=== PATIENT | male | born 1960 | race Caucasian/White ===

== ENCOUNTER 2016-12-28 13:27 | Inpatient (IN) | payer OTHER ==
[2016-12-28 14:16] VITALS: BMI 23.7
--- NOTE | 2016-12-28 17:30 | HP ---
COWS - Scale Resting Pulse: 0= ME 80 or Below Sweatin= Chills/Flushing Restless Observation: 1= Difficult to Sit Still Pupil Size: 0= Normal to Room Light Bone or Joint Aches: 1= Mild Discomfort Runny Nose/ Eye Tearin= Nasal Congestion GI Upset > 30mins: 2= Nausea/Diarrhea Tremor Observation: 2= Slight Tremor Visible Yawning Observation: 1= 1-2x During Session Anxiety or Irritability: 2=Irritable/Anxious Goose Flesh Skin: 3=Piloerection COWS Score: 14 CIWA Score - CIWA Score Nausea/Vomitin Muscle Tremors: 4-Moderate,w/Arms Extend Anxiety: 4-Mod. Anxious/Guarded Agitation: 4-Moderately Restless Paroxysmal Sweats: 1-Minimal Palms Moist Orientation: 1-Uncertain about Date Tacttile Disturbances: 0-None Auditory Disturbances: 0-None Visual Disturbances: 0-None Headache: 0-None Present CIWA-Ar Total Score: 16 Admission ROS BHS - HPI Chief Complaint: WITHDRAWAL SX Allergies/Adverse Reactions: Allergies Allergy/AdvReac Type Severity Reaction Status Date / Time Penicillins Allergy Intermediate Rash Verified 12/28/16 15:38 History of Present Illness: 56 YEARS OLD MALE WITH LONG HISTORY OF ALCOHOL OPIATE NICOTINE DEPENDENCE, HAS GERD HYPERLIPIDEMIA, CHRONIC ANGINA X 15 YEARS, HYPERTENSION ASTHMA AND SCHIZOPHRENIA, IS ADMITTED TO DETOX Exam Limitations: No Limitations - Ebola screening Have you traveled outside of the country in the last 21 days: No Have you had contact with anyone from an Ebola affected area: No Have you been sick,other than usual withdrawal symptoms: No Do you have a fever: No - Review of Systems Constitutional: Chills, Changes in sleep, Weight Stable EENT: reports: No Symptoms Reported Respiratory: reports: Cough Cardiac: reports: Chest Pain (CHRONIC ANGINA X 15 YEARS) GI: reports: Nausea, Poor Appetite, Poor Fluid Intake, Indigestion, Abdominal cramping : reports: No Symptoms Reported Musculoskeletal: reports: Back Pain, Joint Pain, Muscle Pain, Neck Pain Integumentary: reports: No Symptoms Reported Neuro: reports: Seizure (LAST EPISODE 10/2016), Tremors Endocrine: reports: No Symptoms Reported Hematology: reports: Easy Bruising Psychiatric: reports: Judgement Intact Other Systems: Reviewed and Negative Patient History - Patient Medical History Hx Anemia: No Hx Asthma: Yes Hx Chronic Obstructive Pulmonary Disease (COPD): No Hx Cancer: No Hx Cardiac Disorders: Yes (CAD) Hx Congestive Heart Failure: No Hx Hypertension: Yes Hx Hypercholesterolemia: Yes Hx Pacemaker: No HX Cerebrovascular Accident: Yes (5 YRS. AGO,LEFT SIDED WEAKNESS,RESOLVED) Hx Seizures: Yes (10/2016) Hx Dementia: No Hx Diabetes: Yes Hx Gastrointestinal Disorders: Yes Hx Liver Disease: No Hx Genitourinary Disorders: No Hx Sexually Transmitted Disorders: No Hx Renal Disease (ESRD): No Hx Thyroid Disease: No Hx Human Immunodeficiency Virus (HIV): No Hx Hepatitis C: No Hx Depression: No Hx Suicide Attempt: Yes (02/2016 KILLED BY PROXY) Hx Bipolar Disorder: No Hx Schizophrenia: Yes - Patient Surgical History Past Surgical History: No Hx Neurologic Surgery: No Hx Cataract Extraction: No Hx Cardiac Surgery: No Hx Lung Surgery: No Hx Breast Surgery: No Hx Breast Biopsy: No Hx Abdominal Surgery: No Hx Appendectomy: No Hx Cholecystectomy: No Hx Genitourinary Surgery: No Hx Orthopedic Surgery: No - PPD History Previous Implant?: Yes Documented Results: Negative w/proof Implanted On Prior R Admission?: Yes Date: 01/07/16 PPD to be Administered?: No - Smoking Cessation Smoking history: Current every day smoker Have you smoked in the past 12 months: Yes Aproximately how many cigarettes per day: 10 Cigars Per Day: 0 Hx Chewing Tobacco Use: No Initiated information on smoking cessation: Yes 'Breaking Loose' booklet given: 12/28/16 - Substance & Tx. History Hx Alcohol Use: Yes Hx Substance Use: Yes Substance Use Type: Alcohol, Heroin, Opiates Hx Substance Use Treatment: Yes - Substances Abused Alcohol Route: Oral Frequency: Daily Amount used: 2 pints vodka, 10 beers Age of first use: 28 Date of Last Use: 12/28/16 Heroin Route: Injection Frequency: Daily Amount used: 15 bags Age of first use: 14 Date of Last Use: 12/28/16 Family Disease History - Family Disease History Family Disease History: Diabetes: Mother (HTN), Brother (CRF,HEMODIALYSIS), Heart Disease: Mother Admission Physical Exam BHS - Vital Signs Vital Signs: Vital Signs - 24 hr 12/28/16 14:13 Temperature 97.5 F L Pulse Rate 78 Respiratory 15 Rate Blood Pressure 141/80 - Physical General Appearance: Yes: Appropriately Dressed, Mild Distress, Alcohol on Breath , Thin, Tremorous, Irritable, Sweating, Anxious HEENTM: Yes: Hearing grossly Normal, Normal ENT Inspection, Normocephalic, Normal Voice Respiratory: Yes: Chest Non-Tender, No Respiratory Distress, No Accessory Muscle Use, Wheezing, Expiration Neck: Yes: Supple, Trachea in good position Breast: Yes: Breasts Symetrical Cardiology: Yes: Regular Rhythm, Regular Rate, S1, S2 Abdominal: Yes: Non Tender, Soft, Increased Bowel Sounds Genitourinary: Yes: Within Normal Limits Back: Yes: Normal Inspection Musculoskeletal: Yes: full range of Motion, Gait Steady (CANE), Back pain, Muscle Pain Extremities: Yes: Normal Range of Motion, Non-Tender, Tremors Neurological: Yes: Alert, Motor Strength 5/5, Normal Response, Depressed Affect Integumentary: Yes: Warm, Moist, Track Bhakta Lymphatic: Yes: Within Normal Limits - Diagnostic (1) Alcohol dependence with uncomplicated withdrawal Current Visit: Yes Status: Acute (2) HTN (hypertension) Current Visit: Yes Status: Acute Qualifiers: Hypertension type: essential hypertension Qualified Code(s): I10 - Essential (primary) hypertension (3) Hypercholesteremia Current Visit: Yes Status: Acute (4) Nicotine dependence Current Visit: Yes Status: Acute Qualifiers: Nicotine product type: cigarettes Substance use status: in withdrawal Qualified Code(s): F17.213 - Nicotine dependence, cigarettes, with withdrawal (5) Opioid dependence with withdrawal Current Visit: Yes Status: Acute (6) Schizophrenia Current Visit: Yes Status: Suspected Qualifiers: Schizophrenia type: disorganized schizophrenia Qualified Code(s): F20.1 - Disorganized schizophrenia (7) Asthma Current Visit: Yes Status: Acute Qualifiers: Asthma severity: mild intermittent Asthma complication type: uncomplicated Qualified Code(s): J45.20 - Mild intermittent asthma, uncomplicated (8) Chronic stable angina Current Visit: Yes Status: Chronic (9) 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
[2016-12-28] MEDS ORDERED: ACETAMINOPHEN 325 MG TABLET (FP) PO PRN (17:35)
[2016-12-28] MEDS ORDERED: MAG HYDROX/AL HYDROX/SIMETH 30 ML UNIT-DOSE CUP PO PRN (17:35)
[2016-12-28] MEDS ORDERED: MAGNESIUM CITRATE 300 ML BOTTLE PO PRN (17:35)
[2016-12-28] MEDS ORDERED: guaiFENesin/D-METHORPHAN HB 10 ML UNIT-DOSE CUPS PO PRN (17:35)
[2016-12-28] MEDS ORDERED: LOPERAMIDE HCL 2 MG CAPSULE PO PRN (17:35)
[2016-12-28] MEDS ORDERED: diphenhydrAMINE HCL 50 MG CAPSULE PO PRN (17:35)
[2016-12-28] MEDS ORDERED: MENTHOL/PHENOL 1 EACH UD MM PRN (17:35)
[2016-12-28] MEDS ORDERED: MAGNESIUM HYDROX 2400MG/30ML ORAL SUSPENSION 30 ML CUP PO PRN (17:35)
[2016-12-28] MEDS ORDERED: P-EPHED 60MG/TRIPROLIDI 2.5MG TABLET PO PRN (17:35)
[2016-12-28] MEDS ORDERED: ALBUTEROL SO4 6.7 GM HFA INHALER IH PRN (17:38)
[2016-12-28] MEDS ORDERED: ALBUTEROL SO4 2.5/IPRATROPIUM 0.5 INH SOL 3 ML VIAL.NEB. NEB PRN (17:38)
[2016-12-28] MEDS ORDERED: cloNIDine HCL 0.1 MG TABLET PO PRN (17:39)
[2016-12-28] MEDS ORDERED: METHADONE HCL 10 MG TABLET (FOR DETOX USE ONLY) PO ONE ×2 (18:00→23:00)
[2016-12-28] MEDS: chlordiazePOXIDE HCL 25 MG CAPSULE PO PRN (18:40)
[2016-12-28] MEDS ORDERED: INSULIN SLIDING SCALE (NOVOLOG) 1 VIAL SQ SCH (22:00)
[2016-12-28] MEDS: THIAMINE HCL 100 MG TABLET (FP) PO SCH (22:16)
[2016-12-28] MEDS: METOPROLOL TARTRATE 25 MG TABLET (FP) PO SCH (22:16)
[2016-12-28] MEDS: chlordiazePOXIDE HCL 25 MG CAPSULE PO SCH (22:16)
[2016-12-28] MEDS: RANITIDINE HCL 150 MG TABLET (FP) PO SCH (22:17)
[2016-12-28] MEDS: ATORVASTATIN CA 40 MG TABLET (FP) PO SCH (22:17)
[2016-12-28 22:51] LABS: URINE APPEARANCE CLEAR; URINE BILIRUBIN NEGATIVE (NEGATIVE); URINE BLOOD NEGATIVE (NEGATIVE); URINE COLOR STRAW; URINE GLUCOSE (UA) NEGATIVE (NEGATIVE); URINE KETONE NEGATIVE (NEGATIVE); URINE LEUK ESTERASE NEGATIVE (NEGATIVE); URINE NITRITE NEGATIVE (NEGATIVE); URINE PROTEIN NEGATIVE (NEGATIVE); URINE UROBILINOGEN NEGATIVE E.U./dl (0.2-1.0)
[2016-12-29] MEDS: chlordiazePOXIDE HCL 25 MG CAPSULE PO SCH ×4 (05:57→22:24)
[2016-12-29] MEDS ORDERED: HALOPERIDOL 5 MG TABLET (FP) PO PRN (09:06)
--- NOTE | 2016-12-29 09:06 | CONSULT ---
[facility] Psychiatric Consult - Data Date of interview: 12/29/16 Admission source: [facility] Identifying data: This is 56 years old male with history of Schizophrenia intoxicated wiuth: Alcohol and Opioids Substance Abuse History: - Smoking Cessation. Smoking history: Current every day smoker. Have you smoked in the past 12 months: Yes. Aproximately how many cigarettes per day: 10. Cigars Per Day: 0. Hx Chewing Tobacco Use: No. Initiated information on smoking cessation: Yes. 'Breaking Loose' booklet given : 12/28/16. - Substance & Tx. History. Hx Alcohol Use: Yes. Hx Substance Use : Yes. Substance Use Type: Alcohol, Heroin, Opiates. Hx Substance Use Treatment: Yes. - Substances Abused. Alcohol. Route: Oral. Frequency: Daily. Amount used: 2 pints vodka, 10 beers. Age of first use: 28. Date of Last Use: 12/28/16. Heroin. Route: Injection. Frequency: Daily. Amount used: 15 bags. Age of first use: 14. Date of Last Use: 12/28/16 Medical History: Asthma, HTN, Hypercholesterolemia Psychiatric History: Patient as per cahrt carries Paranoid Schisophrenia, as per chart taking: Haldol 5mg po bid. Cogentin 1mg po bid. Patient reports unclea history of past psychiatric hospitalizations Physical/Sexual Abuse/Trauma History: Denies Additional Comment: Haldol 5mg po bid. Cogentin 1mg po bid Mental Status Exam - Mental Status Exam Alert and Oriented to: Person Cognitive Function: Fair Patient Appearance: Unkempt Mood: Angry, Anxious Affect: Constricted Patient Behavior: Guarded Speech Pattern: Pressured Voice Loudness: Mildly Loud Thought Process: Circumstantial Thought Disorder: Present, Being Controlled Hallucinations: Denies Suicidal Ideation: Denies Homicidal Ideation: Denies Insight/Judgement: Fair Sleep: Difficulty falling asleep Appetite: Fair Muscle strength/Tone: Mild Hypotonicity Gait/Station: Shuffling Additional Comments: Haldol 5mg po bid. Cogentin 1mg po bid Psychiatric Findings - Problem List ([place] 1, 2,3) (1) Alcohol dependence with uncomplicated withdrawal Current Visit: Yes Status: Acute (2) Nicotine dependence Current Visit: Yes Status: Acute Qualifiers: Nicotine product type: cigarettes Substance use status: in withdrawal Qualified Code(s): F17.213 - Nicotine dependence, cigarettes, with withdrawal (3) Opioid dependence with withdrawal Current Visit: Yes Status: Acute (4) Schizophrenia Current Visit: Yes Status: Suspected Qualifiers: Schizophrenia type: disorganized schizophrenia Qualified Code(s): F20.1 - Disorganized schizophrenia - Initial Treatment Plan Initial Treatment Plan: Haldol 5mg po bid. Cogentin 1mg po bid
[2016-12-29] MEDS ORDERED: METHADONE HCL 10 MG TABLET (FOR DETOX USE ONLY) PO SCH (10:00)
[2016-12-29 10:09] LABS: MCH 29.7 pg (25.7-33.7); MCHC 33.5 g/dl (32.0-35.9); MEAN CELL VOLUME 88.6 fl (80-96); MEAN PLT VOLUME 9.8 fl (7.5-11.1); PLATELET COUNT 211 K/MM3 (134-434); WHITE BLOOD COUNT 6.6 K/mm3 (4.0-10.0)
[2016-12-29] MEDS: BENZTROPINE MESYLATE 1 MG TABLET (FP) PO SCH ×2 (10:13→22:25)
[2016-12-29] MEDS: METOPROLOL TARTRATE 25 MG TABLET (FP) PO SCH ×2 (10:14→22:25)
[2016-12-29] MEDS: NICOTINE 14 MG/24 HOURS TOPICAL PATCH TD SCH (10:14)
[2016-12-29] MEDS: ASPIRIN 81 MG CHEWABLE TABLETS PO SCH (10:14)
[2016-12-29] MEDS: RANITIDINE HCL 150 MG TABLET (FP) PO SCH ×2 (10:14→22:25)
[2016-12-29 10:19] LABS: ALBUMIN 3.9 g/dl (3.4-5.0); ANION GAP 5 (8-16); CO2 34 mmol/L (21-32); CREATININE 0.7 mg/dL (0.7-1.3); GLUCOSE,RANDOM 80 mg/dL (74-106); SGOT/AST 52 U/L (15-37); SGPT/ALT 58 U/L (12-78)
[2016-12-29 10:21] LABS: ALK PHOS 119 U/L (45-117); BILIRUBIN,TOTAL 0.4 mg/dL (0.2-1.0); TOT PROT 7.4 g/dl (6.4-8.2)
--- NOTE | 2016-12-29 10:25 | PN ---
[facility] CIWA - CIWA Score Nausea/Vomitin Muscle Tremors: 4-Moderate,w/Arms Extend Anxiety: 4-Mod. Anxious/Guarded Agitation: 4-Moderately Restless Paroxysmal Sweats: 3 Orientation: 0-Oriented Tacttile Disturbances: 0-None Auditory Disturbances: 0-None Visual Disturbances: 0-None Headache: 0-None Present CIWA-Ar Total Score: 18 S COWS - Scale Resting Pulse: 0= [place] 80 or Below Sweatin=Flushed/Facial Moisture Restless Observation: 1= Difficult to Sit Still Pupil Size: 0= Normal to Room Light Bone or Joint Aches: 2= Severe Diffuse Aches Runny Nose/ Eye Tearin= Runny Nose/Eyes GI Upset > 30mins: 2= Nausea/Diarrhea Tremor Observation of Outstretched Hands: 2= Slight Tremor Visible Yawning Observation: 1= 1-2x During Session Anxiety or Irritability: 2=Irritable/Anxious Goose Flesh Skin: 0=Smooth Skin COWS Score: 14 [facility] Progress Note (SOAP) Subjective: Anxiety,tremors,sweating,nausea,interrupted sleep,restless,body aches Objective: 12/29/16 10:24 Vital Signs - 8 hr 12/29/16 12/29/16 12/29/16 03:30 06:04 09:10 Temperature 95.8 F L 97.2 F L Pulse Rate 77 75 Respiratory 18 18 18 Rate Blood Pressure 136/93 142/83 Laboratory Tests 12/28/16 12/29/16 12/29/16 22:35 06:00 06:00 WBC 6.6 RBC 4.79 Hgb 14.2 Hct 42.5 MCV 88.6 MCHC 33.5 RDW 14.0 Plt Count 211 MPV 9.8 D Sodium 141 Potassium 4.6 Chloride 102 Carbon Dioxide 34 H Anion Gap 5 L BUN 8 D Creatinine 0.7 Creat Clearance w eGFR > 60 Random Glucose 80 Calcium 9.0 Total Bilirubin 0.4 D AST 52 H D ALT 58 D Alkaline Phosphatase 119 H D Total Protein 7.4 Albumin 3.9 Urine Color Straw Urine Appearance Clear Urine pH 5.0 D Ur Specific [place] 1.005 Urine Protein Negative Urine Glucose (UA) Negative Urine Ketones Negative Urine Blood Negative Urine Nitrite Negative Urine Bilirubin Negative Urine Urobilinogen Negative Ur Leukocyte Esterase Negative labs noted Assessment: 12/29/16 10:25 withdrawal sx. Plan: Continue detox
[2016-12-29 11:35] LABS: HIV 1 & 2 AB NEGATIVE; HIV 1 AGp24 NEGATIVE
[2016-12-29] MEDS: chlordiazePOXIDE HCL 25 MG CAPSULE PO PRN (12:26)
--- NOTE | 2016-12-29 14:15 | EKG ---
Test Reason : Blood Pressure : / mmHG Vent. Rate : 086 BPM Atrial Rate : 086 BPM P-R Int : 152 ms QRS Dur : 076 ms QT Int : 350 ms P-R-T Axes : 049 056 029 degrees QTc Int : 418 ms NORMAL SINUS RHYTHM NORMAL ECG NO PREVIOUS ECGS AVAILABLE Confirmed by PAUL NORWOOD MD ([id number]) on 12/29/2016 2:15:30 PM Referred By: Leonidas Echevarria Confirmed By:PAUL NORWOOD MD
[2016-12-29] MEDS: THIAMINE HCL 100 MG TABLET (FP) PO SCH (22:25)
[2016-12-29] MEDS: ATORVASTATIN CA 40 MG TABLET (FP) PO SCH (22:25)
[2016-12-30] MEDS: chlordiazePOXIDE HCL 25 MG CAPSULE PO PRN (01:15)
[2016-12-30] MEDS: chlordiazePOXIDE HCL 25 MG CAPSULE PO SCH ×2 (05:36→10:30)
[2016-12-30 09:36] VITALS: BP 147/81; PULSE 73; TEMP 96.6
[2016-12-30] MEDS ORDERED: METHADONE HCL 5 MG TABLET (FOR DETOX USE ONLY) PO SCH (10:00)
[2016-12-30] MEDS: ASPIRIN 81 MG CHEWABLE TABLETS PO SCH (10:30)
[2016-12-30] MEDS: BENZTROPINE MESYLATE 1 MG TABLET (FP) PO SCH (10:30)
[2016-12-30] MEDS: RANITIDINE HCL 150 MG TABLET (FP) PO SCH (10:30)
[2016-12-30] MEDS: METOPROLOL TARTRATE 25 MG TABLET (FP) PO SCH (10:30)
[2016-12-30] MEDS: NICOTINE 14 MG/24 HOURS TOPICAL PATCH TD SCH (10:30)
--- NOTE | 2016-12-30 12:25 | DS ---
[facility] Detox Discharge Summary Admission Date: 12/28/16 Discharge Date: 12/30/16 - History Present History: Alcohol Dependence, Opioid Dependence Additional Comments: ADVISED PT. TO FOLLOW-UP WITH INCOME [employer]AX EXPERT FOR GENERAL MEDICAL ASSESSMENT. PATIENT CONFRONTATIONAL AND VERBALLY ABUSIVE TO STAFF. Pertinent Past History: Asthma, HTN, CAD, Schizophrenia, Hypercholesterolemia, DM. - Physical Exam Results Vital Signs: Vital Signs Temperature 96.6 F L 12/30/16 09:35 Pulse Rate 73 12/30/16 09:35 Respiratory Rate 18 12/30/16 09:35 Blood Pressure 147/81 12/30/16 09:35 O2 Sat by Pulse Oximetry (%) Pertinent Admission Physical Exam Findings: WITHDRAWAL SYMPTOMS. Laboratory Last Values WBC 6.6 K/mm3 (4.0-10.0) 12/29/16 06:00 RBC 4.79 M/mm3 (4.00-5.60) 12/29/16 06:00 Hgb 14.2 GM/dL (11.7-16.9) 12/29/16 06:00 Hct 42.5 % (35.4-49) 12/29/16 06:00 MCV 88.6 fl (80-96) 12/29/16 06:00 MCHC 33.5 g/dl (32.0-35.9) 12/29/16 06:00 RDW 14.0 % (11.9-15.9) 12/29/16 06:00 Plt Count 211 K/MM3 (134-434) 12/29/16 06:00 MPV 9.8 fl (7.5-11.1) D 12/29/16 06:00 Sodium 141 mmol/L (136-145) 12/29/16 06:00 Potassium 4.6 mmol/L (3.5-5.1) 12/29/16 06:00 Chloride 102 mmol/L (98-107) 12/29/16 06:00 Carbon Dioxide 34 mmol/L (21-32) H 12/29/16 06:00 Anion Gap 5 (8-16) L 12/29/16 06:00 BUN 8 mg/dL (7-18) D 12/29/16 06:00 Creatinine 0.7 mg/dL (0.7-1.3) 12/29/16 06:00 Creat Clearance w eGFR > 60 (>60) 12/29/16 06:00 Random Glucose 80 mg/dL (74-106) 12/29/16 06:00 Calcium 9.0 mg/dL (8.5-10.1) 12/29/16 06:00 Total Bilirubin 0.4 mg/dL (0.2-1.0) D 12/29/16 06:00 AST 52 U/L (15-37) H D 12/29/16 06:00 ALT 58 U/L (12-78) D 12/29/16 06:00 Alkaline Phosphatase 119 U/L (45-117) H D 12/29/16 06:00 Total Protein 7.4 g/dl (6.4-8.2) 12/29/16 06:00 Albumin 3.9 g/dl (3.4-5.0) 12/29/16 06:00 Urine Color Straw 12/28/16 22:35 Urine Appearance Clear 12/28/16 22:35 Urine pH 5.0 (5.0-8.0) D 12/28/16 22:35 Ur Specific [place] 1.005 (1.001-1.035) 12/28/16 22:35 Urine Protein Negative (NEGATIVE) 12/28/16 22:35 Urine Glucose (UA) Negative (NEGATIVE) 12/28/16 22:35 Urine Ketones Negative (NEGATIVE) 12/28/16 22:35 Urine Blood Negative (NEGATIVE) 12/28/16 22:35 Urine Nitrite Negative (NEGATIVE) 12/28/16 22:35 Urine Bilirubin Negative (NEGATIVE) 12/28/16 22:35 Urine Urobilinogen Negative E.U./dl (0.2-1.0) 12/28/16 22:35 Ur Leukocyte Esterase Negative (NEGATIVE) 12/28/16 22:35 RPR Titer Nonreactive (NONREACTIVE) 12/29/16 06:00 Hepatitis C Antibody <0.1 s/co ratio (0.0-0.9) 12/28/16 06:00 HIV 1&2 Antibody Screen Negative 12/28/16 06:00 HIV P24 Antigen Negative 12/28/16 06:00 LABS NOTED. - Treatment Hospital Course: Detoxed Safely - Medication Discharge Medications: Ambulatory Orders Albuterol Sulfate Inhaler - [Ventolin HFA Inhaler -] 2 inh PO Q4H PRN 10/08/14 Atorvastatin Ca [Lipitor -] 40 mg PO HS 08/06/14 Metoprolol Succinate [Toprol XL -] 25 mg PO BID 08/06/14 Aspirin [ASA -] 81 mg PO DAILY 01/05/16 Esomeprazole Mag Trihydrate [Nexium] 40 mg PO DAILY 01/05/16 Benztropine Mesylate [Cogentin -] 1 mg PO BID #60 tablet 01/06/16 Benztropine Mesylate [Cogentin -] 1 mg PO BID #60 tablet 12/29/16 - Diagnosis (1) Alcohol dependence with uncomplicated withdrawal Status: Acute (2) Asthma Status: Chronic Qualifiers: Asthma severity: mild intermittent Asthma complication type: uncomplicated Qualified Code(s): J45.20 - Mild intermittent asthma, uncomplicated (3) HTN (hypertension) Status: Chronic Qualifiers: Hypertension type: essential hypertension Qualified Code(s): I10 - Essential (primary) hypertension (4) Hypercholesteremia Status: Chronic (5) Nicotine dependence Status: Chronic Qualifiers: Nicotine product type: cigarettes Substance use status: in withdrawal Qualified Code(s): F17.213 - Nicotine dependence, cigarettes, with withdrawal (6) Opioid dependence with withdrawal Status: Acute (7) Chronic stable angina Status: Chronic (8) S/P stroke due to cerebrovascular disease Status: Chronic (9) Schizophrenia Status: Suspected Qualifiers: Schizophrenia type: disorganized schizophrenia Qualified Code(s): F20.1 - Disorganized schizophrenia - AMA Did Patient Leave Against Medical Advice: Yes (PATIENT DID NOT WANT TO STAY AND COMPLETE DETOX PROTOCOL.)
[2016-12-30] MEDS ORDERED: chlordiazePOXIDE 5 MG CAPSULE PO SCH (23:00)
[2016-12-31] MEDS ORDERED: chlordiazePOXIDE HCL 10 MG CAPSULE PO SCH (23:00)
[2017-01-01] MEDS ORDERED: METHADONE HCL 10 MG TABLET (FOR DETOX USE ONLY) PO SCH (10:00)
[2017-01-02] MEDS ORDERED: METHADONE HCL 5 MG TABLET (FOR DETOX USE ONLY) PO SCH (06:00)
== END 2016-12-30 11:47 | disposition left against medical advice (07) | DRG 770 ==
LOC: YASAS 13:27 → Y3N 15:59
PROVIDERS: ADMIT Internal Medicine; ATTEND Internal Medicine
PROC: HZ2ZZZZ Detoxification Services for Substance Abuse Treatment (ICD-10-PCS; principal; 2016-12-30)
DX: F11.23 Opioid dependence with withdrawal (principal); F10.230 Alcohol dependence with withdrawal, uncomplicated; F17.213 Nicotine dependence, cigarettes, with withdrawal; F20.1 Disorganized schizophrenia; I10 Essential (primary) hypertension; J45.20 Mild intermittent asthma, uncomplicated; E78.00 Pure hypercholesterolemia, unspecified; I20.9 Angina pectoris, unspecified; Z86.73 Personal history of transient ischemic attack (TIA), and cerebral infarction without residual deficits
CPT/HCPCS: 36415; 80053; 81003; 85027; 86593; 87389; 93005; 93010

== ENCOUNTER 2021-04-22 09:32 | Inpatient (IN) | payer OTHER ==
[2021-04-22 10:13] VITALS: BMI 20.6
[2021-04-22] MEDS ORDERED: MAG HYDROX/AL HYDROX/SIMETH 30 ML UNIT-DOSE CUP PO PRN (10:47)
[2021-04-22] MEDS ORDERED: MAGNESIUM HYDROX 2400MG/30ML ORAL SUSPENSION 30 ML CUP PO PRN (10:47)
[2021-04-22] MEDS ORDERED: cloNIDine HCL 0.1 MG TABLET PO PRN (10:47)
[2021-04-22] MEDS ORDERED: MAGNESIUM CITRATE 300 ML BOTTLE PO PRN (10:47)
[2021-04-22] MEDS ORDERED: METHADONE HCL 10 MG TABLET (FOR DETOX USE ONLY) PO ONE (10:47)
[2021-04-22] MEDS ORDERED: IBUPROFEN 400 MG TABLET (FP) PO PRN (10:47)
[2021-04-22] MEDS ORDERED: BISMUTH SUBSALICYLATE 262 MG/15 ML BTL PO PRN (10:47)
[2021-04-22] MEDS ORDERED: MENTHOL/PHENOL 1 EACH UD MM PRN (10:47)
[2021-04-22] MEDS ORDERED: METHOCARBAMOL 500 MG TABLET PO PRN (10:47)
[2021-04-22] MEDS ORDERED: ACETAMINOPHEN 325 MG TABLET (FP) PO PRN ×2 (10:47)
[2021-04-22] MEDS ORDERED: ONDANSETRON *ODT* 4 MG TABLET SL PRN (10:47)
[2021-04-22] MEDS: LISINOPRIL 10 MG TABLET PO SCH (11:50)
[2021-04-22] MEDS: ASPIRIN 81 MG CHEWABLE TABLETS PO SCH (11:50)
[2021-04-22] MEDS: PRENATAL VITAMINS W/ FOLIC ACID TABLET (FP) PO SCH (11:52)
[2021-04-22] MEDS: LORazepam 1 MG TABLET PO PRN (11:55)
[2021-04-22] MEDS: hydrOXYzine PAMOATE 25 MG CAPSULE (FP) PO SCH ×3 (13:19→23:03)
[2021-04-22 13:37] LABS: HEMATOCRIT 43.2 % (35.4-49); HEMOGLOBIN 14.4 GM/dL (11.7-16.9); MCH 30.1 pg (25.7-33.7); MCHC 33.2 g/dl (32.0-35.9); MEAN CELL VOLUME 90.7 fl (80-96); MEAN PLT VOLUME 8.6 fl (7.5-11.1); PLATELET COUNT 299 10^3/uL (134-434); RBC 4.77 M/mm3 (4.00-5.60); RDW 13.1 % (11.9-15.9); WHITE BLOOD COUNT 8.2 K/mm3 (4.0-10.0)
[2021-04-22 13:41] LABS: ALBUMIN 4.1 g/dl (3.4-5.0); BLOOD UREA NITROGEN 10.1 mg/dL (7-18); CALCIUM 9.4 mg/dL (8.5-10.1)
[2021-04-22 13:44] LABS: CREATININE 0.7 mg/dL (0.55-1.3)
[2021-04-22 13:45] LABS: BILIRUBIN,TOTAL 0.5 mg/dL (0.2-1)
[2021-04-22 13:47] LABS: TOT PROT 7.8 g/dl (6.4-8.2)
[2021-04-22] MEDS: LORazepam 2 MG TABLET PO SCH ×2 (18:23→23:03)
[2021-04-22] MEDS: MELATONIN 5 MG TABLETS PO SCH (23:04)
[2021-04-22] MEDS: ATORVASTATIN CA 40 MG TABLET (FP) PO SCH (23:04)
[2021-04-22] MEDS: THIAMINE HCL 100 MG TABLET (FP) PO SCH (23:04)
[2021-04-23] MEDS: hydrOXYzine PAMOATE 25 MG CAPSULE (FP) PO SCH ×5 (06:08→22:12)
[2021-04-23] MEDS: LORazepam 2 MG TABLET PO SCH ×4 (06:09→22:12)
[2021-04-23] MEDS ORDERED: METHADONE HCL 5 MG TABLET (FOR DETOX USE ONLY) ONE (08:54)
[2021-04-23] MEDS ORDERED: METHADONE HCL 10 MG TABLET (FOR DETOX USE ONLY) ONE (08:54)
[2021-04-23] MEDS ORDERED: METHADONE (DETOX) 20 MG, METHADONE (DETOX) 5 MG PO ONE (10:00)
[2021-04-23] MEDS: LISINOPRIL 10 MG TABLET PO SCH (10:14)
[2021-04-23] MEDS: PRENATAL VITAMINS W/ FOLIC ACID TABLET (FP) PO SCH (10:14)
[2021-04-23] MEDS: ASPIRIN 81 MG CHEWABLE TABLETS PO SCH (10:17)
[2021-04-23] MEDS: NICOTINE POLACRILEX 2 MG GUM BUC PRN ×2 (15:28→19:32)
[2021-04-23] MEDS: THIAMINE HCL 100 MG TABLET (FP) PO SCH (22:12)
[2021-04-23] MEDS: MELATONIN 5 MG TABLETS PO SCH (22:12)
[2021-04-23] MEDS: ATORVASTATIN CA 40 MG TABLET (FP) PO SCH (22:12)
[2021-04-24] MEDS: LORazepam 1 MG TABLET PO PRN (01:12)
[2021-04-24] MEDS: NICOTINE POLACRILEX 2 MG GUM BUC PRN (01:57)
[2021-04-24 03:36] VITALS: BP 127/69; PULSE 102; TEMP 96.9
[2021-04-24] MEDS ORDERED: LORazepam 0.5 MG TABLET PO ONE (03:39)
[2021-04-24] MEDS ORDERED: hydrOXYzine PAMOATE 25 MG CAPSULE (FP) PO PRN (03:41)
[2021-04-24] MEDS ORDERED: LORazepam 1 MG TABLET PO SCH (05:00)
[2021-04-24] MEDS ORDERED: METHADONE HCL 10 MG TABLET (FOR DETOX USE ONLY) PO ONE (10:00)
[2021-04-25] MEDS ORDERED: LORazepam 0.5 MG TABLET PO PRN
[2021-04-25] MEDS ORDERED: LORazepam 0.5 MG TABLET PO SCH (05:00)
[2021-04-25] MEDS ORDERED: METHADONE (DETOX) 10 MG, METHADONE (DETOX) 5 MG PO ONE (10:00)
[2021-04-26] MEDS ORDERED: LORazepam 0.5 MG TABLET PO ONE (05:00)
[2021-04-26] MEDS ORDERED: METHADONE HCL 10 MG TABLET (FOR DETOX USE ONLY) PO ONE (10:00)
[2021-04-27] MEDS ORDERED: METHADONE HCL 5 MG TABLET (FOR DETOX USE ONLY) PO ONE (06:00)
== END 2021-04-24 05:04 | disposition left against medical advice (07) | DRG 770 ==
LOC: YASAS 09:32 → Y3N 10:51
PROVIDERS: ADMIT Allergy & Immunology; ATTEND Allergy & Immunology
PROC: HZ2ZZZZ Detoxification Services for Substance Abuse Treatment (ICD-10-PCS; principal; 2021-04-22)
DX: F11.23 Opioid dependence with withdrawal (principal); F10.230 Alcohol dependence with withdrawal, uncomplicated; F17.210 Nicotine dependence, cigarettes, uncomplicated; F20.0 Paranoid schizophrenia; F19.282 Other psychoactive substance dependence with psychoactive substance-induced sleep disorder; F31.9 Bipolar disorder, unspecified; F19.24 Other psychoactive substance dependence with psychoactive substance-induced mood disorder; E78.5 Hyperlipidemia, unspecified; I10 Essential (primary) hypertension; Z87.11 Personal history of peptic ulcer disease; Z63.4 Disappearance and death of family member; Z68.20 Body mass index [BMI] 20.0-20.9, adult; Z88.0 Allergy status to penicillin
CPT/HCPCS: 36415; 80053; 85027; 86780; 93005; 93010; C9803; U0003; U0005